=== PATIENT | female | born 1955 | race Two or more races ===

== ENCOUNTER 2023-11-28 07:16 | Emergency (ER) | payer OTHER, MEDICARE ==
[~2023-11-28] VITALS: Ht 149.9 cm; Wt 64.1 kg
[2023-11-28] MEDS ORDERED: LANTINJ4 SC (07:35)
[2023-11-28] MEDS ORDERED: SEMA0.257 SQ (07:35)
[2023-11-28] MEDS ORDERED: JANU100T PO (07:35)
[2023-11-28] MEDS ORDERED: ATOR40TA75 PO (07:37)
[2023-11-28] MEDS: methocarbamoL 500 MG TAB PO ONE (07:55)
[2023-11-28] MEDS: BENZONATATE 100MG CAPSULE PO ONE (07:55)
[2023-11-28] MEDS: ALBUTEROL 90 MCG/ACT 8GM HFA INHALER INH ONE (08:13)
[2023-11-28] MEDS ORDERED: MUCI600T31 PO (09:51)
[2023-11-28] MEDS ORDERED: BENZ200C70 PO (09:51)
[2023-11-28] MEDS ORDERED: METH-1164 PO (09:51)
[2023-11-28] MEDS ORDERED: VENTAER INH (09:51)
[2023-11-28] MEDS ORDERED: FLON1SPR NARES (09:51)
[2023-11-28 09:59] VITALS: BP 158/77; TEMP 99; O2SAT 95
== END 2023-11-28 10:18 | disposition home or self-care (01) ==
LOC: M ED 07:16
DX: R05.9 Cough, unspecified (principal); R09.81 Nasal congestion; M54.50 Low back pain, unspecified; M47.817 Spondylosis without myelopathy or radiculopathy, lumbosacral region; E11.9 Type 2 diabetes mellitus without complications; E78.5 Hyperlipidemia, unspecified; Z79.4 Long term (current) use of insulin; Z79.899 Other long term (current) drug therapy; Z88.7 Allergy status to serum and vaccine